=== PATIENT | female | born 1965 | race Caucasian/White ===

== ENCOUNTER 2019-03-27 07:44 | Outpatient (RCR) | payer BC, SELFPAY ==
[2019-03-27 07:58] VITALS: BMI 27.1
[2019-03-27 07:59] VITALS: BMI 27.1
== END 2019-06-25 23:59 | disposition home or self-care (01) ==
LOC: ANHDMC 07:44
PROVIDERS: PCP Nurse Practitioner Adult Health; Visit Provider Surgery
DX: E66.3 Overweight (principal); Z71.3 Dietary counseling and surveillance
CPT/HCPCS: 97803

== ENCOUNTER 2020-02-18 13:32 | Outpatient (CLI) | payer BC, SELFPAY ==
--- NOTE | ~2020-02-18 | MM_ITS ---
EXAMINATION: MM screening [facility] BI w kamlesh HISTORY: Screening mammogram TECHNIQUE: Craniocaudal and mediolateral oblique 3-D tomosynthesis images were obtained and synthetic 2-D images were generated. CAD analysis was submitted and interpreted. COMPARISON: 02/08/2019, 02/01/2018, 01/23/2017 BREAST PARENCHYMAL COMPOSITION: The breasts are heterogeneously dense, which may obscure small masses . FINDINGS: There is no evidence of suspicious mass, calcification, or architectural distortion to sugg est malignancy in either breast. There has been no suspicious interval change. IMPRESSION: 1. No mammographic evidence of malignancy. 2. Recommend routine screening mammography in one year. BI-RADS Category 1: Negative Reviewed, dictated and finalized at location A.
== END 2020-02-18 13:33 | disposition home or self-care (01) ==
LOC: ANHIMG 13:36
PROVIDERS: PCP Nurse Practitioner Adult Health; Visit Provider Nurse Practitioner Adult Health
DX: Z12.31 Encounter for screening mammogram for malignant neoplasm of breast (principal)
CPT/HCPCS: 77063; 77067

== ENCOUNTER 2020-06-24 12:42 | Outpatient (CLI) | payer BC, SELFPAY ==
--- NOTE | ~2020-06-24 | DEXA_ITS ---
Bone Density Report Name: Lana Snell Age: 55 Sex: Female Ethnicity: White Date of : 1965 Indication: postmenopausal; height loss; seizure disorder; Referring Provider: RASHAUN, AMARIS Study: Bone densitometry was performed. Exam Date: June 24, 2020 Accession number: [id number] Bone Density: Region BMD T-score Z-score Classification AP Spine (L1-L4) 1.179 1.2 2.2 Normal Femoral Neck (Left) 0.851 0.0 1.0 Normal Total Hip (Left) 1.024 0.7 1.3 Normal Total Hip Bilateral Avg 1.003 0.5 1.2 Normal Femoral Neck (Right) 0.828 -0.2 0.8 Normal Total Hip (Right) 0.981 0.3 1.0 Normal World Health Organization criteria for BMD impression classify patients as: Normal (T-score at or above -1.0), Osteopenia (T-score between -1.0 and -2.5), or Osteoporosis (T-score at or below -2.5). 10-year Fracture Risk: FRAX not reported because: All T-scores for Spine Total, Hip Total, Femoral Neck at or above -1.0 Clinical Information Provided by Patient: Has used the following medications: Vitamin D, Calcium Has the following medical conditions: Any Seizure Disorders Patient maximum height was 68 Menopause Age: 53 Drinks caffeinated beverages Onset of menses at age 13 Number of children 0 Impression: The patient has normal bone mass. Discussion: BONE DENSITY IS ABOVE THE MINIMUM DESIRABLE LEVEL AT ALL SKELETAL SITES TESTED. This patient?s bone mineral density is above the minimum desirable level (T-score -1.0 or better) at all sites measured. The patient should follow a healthful lifestyle (good nutrition with adequate calcium and vitamin D, and appropriate weight-bearing exercise). Follow-Up: Consider repeating this study in 5 years or sooner if there is some new clinical indication. Reported by: BEENA on 06/24/2020 1:04:00 PM. Reviewed, dictated and finalized at location AK[facility] DIXON
== END 2020-06-24 12:43 | disposition home or self-care (01) ==
LOC: ANHIMG 12:46
PROVIDERS: PCP Nurse Practitioner Adult Health; Visit Provider Nurse Practitioner Adult Health
DX: Z78.0 Asymptomatic menopausal state (principal)
CPT/HCPCS: 77080

== ENCOUNTER 2021-01-20 08:06 | Emergency (ER) | payer BC, SELFPAY ==
[2021-01-20 08:10] VITALS: BP 126/76; PULSE 77; RESP 20; TEMP 36.9; O2SAT 100
--- NOTE | 2021-01-20 08:10 | ED.URI ---
HPI - URI/Sore Throat General Chief Complaint: Ear Stated Complaint: left ear pain Time Seen by Provider: 01/20/21 08:11 Source: patient and RN notes reviewed History of Present Illness HPI Narrative: Patient is a 55-year-old female who presents the urgent care with complaints of left ear pain since Sunday. Patient also reports of some swollen glands and sore throat since last night. Patient has been using Tylenol, nasal spray and ibuprofen. Denies of any fever, chills, nausea, vomiting. Denies of any contact with strep or Covid. States that she has been vaccinated. No other acute complaints. No acute distress noted. Patient aware of the plan of care. Some parts of this dictation were generated by voice recognition software and may contain typographical and/or grammatical inaccuracies. Related Data Allergies Allergy/AdvReac Type Severity Reaction Status Date / Time No Known Allergies Allergy Verified 01/20/21 08:18 Review of Systems Review of Systems: CONSTITUTIONAL: Denies fever, chills, or sweats. EYES: Denies visual changes, redness, or discharge. ENT: Denies rhinorrhea, congestion. Reports of sore throat, swollen glands and left ear pain CARDIOVASCULAR: Denies chest pain, palpitations, or edema. RESPIRATORY: Denies cough or dyspnea. GASTROINTESTINAL: Denies abdominal pain, nausea, vomiting, or diarrhea. GENITOURINARY: Denies dysuria or hematuria. SKIN: Denies rash or itching. MUSCULOSKELETAL: Denies back pain, joint pain, or myalgia. NEUROLOGIC: Denies headache, numbness, or weakness. All other systems reviewed are negative, except as documented in HPI. [facility] Family History Family History (Updated 12/22/16 @ 08:53 by DOCTOR UNKNOWN) Other Cerebrovascular accident Family history of Alzheimer's disease Family history of anemia Family history of cardiovascular disease Family history of thyroid disease Hypertension Social History Social History Smoking status: Never smoker Alcohol intake: current Spiritual care concerns: No Comments At the time of my signature, I reviewed and agree with the nursing past medical, surgical, social, and family history. There is no relevant family history pertinent to the patient complaint. Exam Narrative: GENERAL: This is a well-nourished, well-developed patient, in no apparent distress. HEAD: normocephalic, atraumatic. EYES: PERRL. Sclera clear/white. Vision is grossly intact. EARS: External ears normal, mild edema and erythema with clear drainage noted to the left ear canal, right auditory canals clear and without drainage, TMs normal without perforation. Hearing grossly intact. NOSE: External nose normal with no obvious nasal discharge, nares without redness, no rhinorrhea. THROAT: Mucous membranes moist, mild erythema noted posterior oropharynx with moderate clear postnasal drainage NECK: Neck supple, mild left submandibular lymphadenopathy CARDIOVASCULAR: Regular rate and rhythm without murmurs, gallops, or rubs. RESPIRATORY: Clear to auscultation. Breath sounds equal bilaterally. No wheezes, rales, or rhonchi. SKIN: warm, intact with no suspicious lesions or rash, good texture and turgor. NEURO: awake, alert, and oriented to person, place and time. There were no obvious focal neurologic abnormalities. EXTREMITIES: No clubbing, cyanosis, or edema. Course Vital Signs Vital signs: Vital Signs Temperature 98.4 F 01/20/21 08:10 Pulse Rate 77 01/20/21 08:10 Respiratory Rate 20 01/20/21 08:10 Blood Pressure 126/76 01/20/21 08:10 Pulse Oximetry 100 01/20/21 08:10 Temperature 98.4 F 01/20/21 08:10 Pulse Rate 77 01/20/21 08:10 Respiratory Rate 20 01/20/21 08:10 Blood Pressure 126/76 01/20/21 08:10 Pulse Oximetry 100 01/20/21 08:10 Reviewed MDM - URI/Sore Throat MDM Narrative Medical decision making narrative: Reviewed lab results with the patient. She is aware that strep swab was negative. Educated her on culture krishna tran
== END 2021-01-20 08:34 | disposition home or self-care (01) ==
PROVIDERS: Emergency Provider Nurse Practitioner Family; PCP Nurse Practitioner Adult Health
DX: H60.92 Unspecified otitis externa, left ear (principal); G40.909 Epilepsy, unspecified, not intractable, without status epilepticus; E78.00 Pure hypercholesterolemia, unspecified; E03.9 Hypothyroidism, unspecified
CPT/HCPCS: 87081; 87880; 99213; G0463

== ENCOUNTER → 2021-03-29 11:23 | Outpatient (CLI) | payer BC, SELFPAY ==
--- NOTE | ~2021-03-29 | US_ITS ---
EXAMINATION: US thyroid EXAM DATE: 03/29/2021 11:40 INDICATION: Nontoxic single thyroid nodule. TECHNIQUE: Multiple grayscale and Doppler images of the thyroid were obtained (by a technologist who performed the scan) and subsequently reviewed. Individual nodules and recommendations may be reporte d in accordance with TI-RADS system as designated by the 2017 ACR White Paper TI-RADS committee. Comp krystian is made to prior examination from 11/29/2016. FINDINGS: Right thyroid lobe measures 4.4 x 1.8 x 1.3 cm, the left measuring 4.1 x 1.6 x 1.4, dimensions upper limits of normal. There is diffusely heterogeneous thyroid echogenicity without any focal nodule iden tified. Mildly hypervascular parenchyma. IMPRESSION: Heterogeneous, mildly hypervascular thyroid parenchyma, consistent with Suleman's thyro iditis. Reviewed, dictated and finalized at location A. RETE POINTER IMPRESSION: Heterogeneous, mildly hypervascular thyroid parenchyma, consistent with Suleman's thyroiditis.
== END ==
PROVIDERS: PCP Nurse Practitioner Adult Health; Visit Provider Internal Medicine Endocrinology, Diabetes & Metabolism
DX: E04.1 Nontoxic single thyroid nodule (principal)
CPT/HCPCS: 76536

== ENCOUNTER → 2021-04-04 12:27 | Outpatient (CLI) | payer BC, SELFPAY ==
--- NOTE | ~2021-04-04 | MM_ITS ---
EXAMINATION: MM screening [facility] BI w kamlesh HISTORY: Screening mammogram TECHNIQUE: Craniocaudal and mediolateral oblique 3-D tomosynthesis images were obtained and synthetic 2-D images were generated. CAD analysis was submitted and interpreted. COMPARISON: 02/18/2020, 02/08/2019 BREAST PARENCHYMAL COMPOSITION: The breasts are heterogeneously dense, which may obscure small masses . FINDINGS: There is no evidence of suspicious mass, calcification, or architectural distortion to sugg est malignancy in either breast. There has been no suspicious interval change. IMPRESSION: 1. No mammographic evidence of malignancy. 2. Recommend routine screening mammography in one year. BI-RADS Category 1: Negative Reviewed, dictated and finalized at location A. PLUCKER
== END ==
PROVIDERS: PCP Nurse Practitioner Adult Health; Visit Provider Nurse Practitioner Adult Health
DX: Z12.31 Encounter for screening mammogram for malignant neoplasm of breast (principal)
CPT/HCPCS: 77063; 77067